=== PATIENT | male | born 1940 | race Caucasian/White ===

== ENCOUNTER 2016-09-21 09:40 | Outpatient (CLI) | payer MEDICARE, OTHER ==
[2016-04-06 15:45] VITALS: BP 128/72
[2016-09-21 10:02] LABS: BASOPHILS % 0.9 (0.0-1.5); EOSINOPHILS % 4.2 % (0.0-6.8); MEAN CORPUSCULAR HEMOGLOBIN 30.4 pg (28.0-34.0); MONOCYTES % 6.5 % (0.0-11.0)
[2016-09-21 10:31] LABS: eGFR (African) > 60; eGFR (Non-African) > 60
== END 2016-09-21 09:42 ==
LOC: LAB 09:40
PROVIDERS: ATTEND Internal Medicine
DX: Z00.00 Encounter for general adult medical examination without abnormal findings (principal); I10 Essential (primary) hypertension; G63 Polyneuropathy in diseases classified elsewhere; E55.9 Vitamin D deficiency, unspecified
CPT/HCPCS: 36415; 80053; 80061; 82306; 84443; 85025

== ENCOUNTER → 2016-11-25 | Outpatient (CLI) | payer MEDICARE, OTHER ==
[2016-04-06 15:45] VITALS: BP 128/72
[2016-11-25 11:23] LABS: BILIRUBIN,DIRECT 0.2 mg/dL (0.0-0.4)
== END ==
LOC: LAB 10:42
PROVIDERS: ATTEND Dermatology
DX: Z79.899 Other long term (current) drug therapy (principal)
CPT/HCPCS: 36415; 80076

== ENCOUNTER 2017-03-31 10:40 | Outpatient (CLI) | payer MEDICARE, OTHER ==
[2016-04-06 15:45] VITALS: BP 128/72
== END 2017-03-31 10:42 ==
LOC: LAB 10:40
PROVIDERS: ATTEND Internal Medicine
DX: E66.3 Overweight (principal); M19.90 Unspecified osteoarthritis, unspecified site; I10 Essential (primary) hypertension; E55.9 Vitamin D deficiency, unspecified
CPT/HCPCS: 36415; 83036

== ENCOUNTER 2017-08-18 09:15 | Outpatient (CLI) | payer MEDICARE, OTHER ==
[2016-04-06 15:45] VITALS: BP 128/72
[2017-08-18 10:00] LABS: BASOPHILS % 0.7 (0.0-1.5); EOSINOPHILS % 5.1 % (0.0-6.8); MEAN CORPUSCULAR HEMOGLOBIN 30.9 pg (28.0-34.0); MEAN CORPUSCULAR VOLUME 93.6 fl (80.0-100.0); MONOCYTES % 6.1 % (0.0-11.0); NEUTROPHILS # 4.2 # k/uL (1.4-7.7)
[2017-08-18 10:49] LABS: eGFR (African) > 60; eGFR (Non-African) > 60
== END 2017-08-18 09:16 ==
LOC: LAB 09:15
PROVIDERS: ATTEND Family Medicine
DX: E66.3 Overweight (principal)
CPT/HCPCS: 36415; 80053; 80061; 83036; 85025; 86141

== ENCOUNTER 2017-12-23 10:57 | Emergency (ER) | payer MEDICARE, OTHER ==
--- NOTE | 2017-12-23 11:19 | ED Physician Documentation ---
General Adult - HISTORIAN Historian: patient, paramedics, other (old records. pt is no informative) - HPI Stated Complaint: "general weakness" Chief Complaint: General Adult Additional Information: 3-4 days of feeling weak and not eating much. Says he has been drinking liquids. Has urinated twice since 0900 today. Per EMS, pt's house was very warm and he felt warm to touch on their arrival. HX AAA repair with stents, AMI, COPD , BPH. No oxygen use at home. Tachycardia in 120's and pulse ox 92% on RA on arrival. Timing: still present - ROS CONST: no problems - PAST HX Past History: AMI, COPD, other (AAA, BPH) Other History: other (HLD) Surgeries/Procedures: other (above) Allergies/Adverse Reactions: Allergies Allergy/AdvReac Type Severity Reaction Status Date / Time clopidogrel bisulfate Allergy Intermediate Rash Verified 12/23/17 11:48 [From Plavix] Home Medications: Ambulatory Orders Medication Instructions Recorded Benazepril HCl [Benazepril HCl] 20 mg PO DIRECTED 12/21/13 Metoprolol Succinate [Metoprolol 50 mg PO DAILY 12/21/13 Succinate] Simvastatin [Simvastatin] 40 mg PO DAILY 12/21/13 Tamsulosin HCl [Tamsulosin HCl] 0.4 mg PO DIRECTED 12/21/13 Finasteride 5 mg PO DAILY u2 08/30/17 - SOCIAL HX Smoking History: quit greater than 1 year, cigarettes Alcohol Use: other ("gave it up years ago") - FAMILY HX Family History: Yes (F with heart problem M with strokes) - VITAL SIGNS Vital Signs: Vital Signs Temp Pulse Resp BP Pulse Ox 128/72 04/06/16 15:41 - REVIEWED ASSESSMENTS Nursing Assessment Reviewed: Yes Vitals Reviewed: Yes Progress - Progress Progress: EKG with sinus tach, 123 BPM, occ PVC's, No acute ischemic changes. Report Submission Date: Dec 23, 2017 11:57:24 AM CDT Patient Study Name: RUPA STANFORD Date: Dec 23, 2017 11:25:09 AM CDT Modality Type: DX Gender: M Description: CHEST : 36 Institution: [facility] Physician: JODIE ROSAS - ER Portable chest Clinical history: Weakness. Shortness of breath. Findings: Examination of the chest and single portable AP view demonstrates the lungs to be hypoventilated but clear. The cardiac silhouette is prominent and the aorta is atherosclerotic. Bony thorax is intact. Impression: 1. Hypoventilation. 2. Aortic atherosclerosis and left ventricular prominence. Electronically signed on Dec 23, 2017 11:57:24 AM CDT by: Shaq Erwin [id number] after 2L NS. Wants to know when he can go home. Has been drinking water, eating crackers. Orthostatics fine. Ambulatory w/o difficulty. ED Results Lab/Radiology - Orders Orders: ED Orders Category Date Time Status Continuous EKG monitoring Q1H Care 12/23/17 11:08 Active Remove IV/Saline Lock 1T Care 12/23/17 11:08 Active CHEST 1VIEW [RAD] Stat Exams 12/23/17 Ordered BLOOD CULTURE Stat Lab 12/23/17 Ordered CBC/PLATELET/DIFF Routine Lab 12/23/17 Ordered CMP Routine Lab 12/23/17 Ordered PT-INR Routine Lab 12/23/17 Ordered TROPONIN I (cTnI) Stat Lab 12/23/17 Ordered URINALYSIS Routine Lab 12/23/17 Ordered EKG WITH COMPARISON Stat Ther 12/23/17 Ordered General Adult Physical Exam - PHYSICAL EXAM GENERAL APPEARANCE: moderate distress EENT: eye inspection normal, ENT inspection normal, pharynx normal, dry mucous membranes NECK: normal inspection. No: lymphadenopathy RESPIRATORY: no resp distress, breath sounds normal (but decreased throughout) CVS: heart sounds normal, tachycardia ABDOMEN: soft, normal bowel sounds, no abdominal bruit, no distension, non- tender BACK: normal inspection, other (no vertebral tenderness. Requires assist to sit) SKIN: warm/dry, normal color EXTREMITIES: non-tender, no evidence of injury, no edema, other (DP's 1+) NEURO: CN's nml as tested, motor nml, sensation nml Discharge Clincal Impression: Dehydration Referrals: Rafael Stark MD [Primary Care Provider] - 2 Days Additional Instructions: Drink more water! Your labs and EKG and x ray were reassuring. Condition: Good Disposition: 01 HOME, SELF-CARE Decision to Admit: NO Decision Time: 14:05
[2017-12-23 11:43] LABS: BASOPHILS % 0.3 (0.0-1.5); EOSINOPHILS % 0.2 % (0.0-6.8); MEAN CORPUSCULAR HEMOGLOBIN 31.2 pg (28.0-34.0); MEAN CORPUSCULAR VOLUME 93.3 fl (80.0-100.0); MONOCYTES % 4.2 % (0.0-11.0); NEUTROPHILS # 9.8 # k/uL (1.4-7.7)
[2017-12-23 11:54] LABS: eGFR (African) > 60; eGFR (Non-African) > 60
[2017-12-23] MEDS: 0.9 % SODIUM CHLORIDE 1,000 ML IV ONE (12:30)
[2017-12-23 14:37] VITALS: BP 116/83
--- NOTE | 2017-12-23 16:07 | Diagnostic Imaging Report ---
JODIE ROSAS [facility] [id number] [facility] [address] [address] Report Submission Date: Dec 23, 2017 11:57:24 AM CDT Patient Study Name: RUPA STANFORD Date: Dec 23, 2017 11:25:09 AM CDT Modality Type: DX Gender: M Description: CHEST : 36 Institution: [facility] Physician: JODIE ROSAS Portable chest Clinical history: Weakness. Shortness of breath. Findings: Examination of the chest and single portable AP view demonstrates the lungs to be hypoventilated but clear. The cardiac silhouette is prominent and the aorta is atherosclerotic. Bony thorax is intact. Impression: 1. Hypoventilation. 2. Aortic atherosclerosis and left ventricular prominence. Electronically signed on Dec 23, 2017 11:57:24 AM CDT by: Shaq MCCLELLAN
[2017-12-24 07:39] LABS: APPEARANCE,URINE CLEAR (CLEAR); COLOR,URINE YELLOW (YELLOW); OCCULT BLOOD,URINE 2+ (NEGATIVE); PH URINE 6.5 (5.0 - 8.0); UROBILINOGEN URINE 0.2 Eu (0.2-1.0)
== END 2017-12-23 14:20 | disposition home or self-care (01) ==
LOC: ED 10:57
DX: E86.0 Dehydration (principal)
CPT/HCPCS: 71045; 80053; 81002; 84484; 85025; 85610; 87040; 93005; J7030; 96360; 99284; S1016

== ENCOUNTER 2018-02-28 12:21 | Outpatient (CLI) | payer MEDICARE, OTHER ==
[2018-02-28 13:57] LABS: eGFR (Non-African) > 60
== END 2018-02-28 12:23 ==
LOC: LAB 12:21
PROVIDERS: ATTEND Family Medicine
DX: Z00.00 Encounter for general adult medical examination without abnormal findings (principal); E78.5 Hyperlipidemia, unspecified
CPT/HCPCS: 36415; 80053; 80061

== ENCOUNTER 2018-06-12 11:03 | Emergency (ER) | payer MEDICARE, OTHER ==
[2018-06-12 11:21] VITALS: BP 104/64
--- NOTE | 2018-06-12 11:22 | ED Physician Documentation ---
Upper Extremity Injury - HISTORIAN Historian: patient - HPI Stated Complaint: left wrist pain Chief Complaint: Upper Extremity Problem Additional Information: Patient presents to ED with a 1 month history of left wrist pain after opening his refrigerator. He states he has been wearing a brace to help manage the pain. He has not taken any tylenol or ibuprofen. He has a friend who is a retired RN who sent him to the ER, stating "may have a hair line fracture". Onset: other (1 month ago) Where: home Severity: mild Duration: persistent since Context: other (opening refrigerator door) Associated Symptoms: denies: tingling, loss of power to arms Modifying Factors: pain on movement Further Comments: no - ROS CONST: no problems CVS/RESP: none NEURO: none MS/SKIN/LYMPH: none GI/: denies: nausea, vomiting - PAST HX Past History: Rt handed Allergies/Adverse Reactions: Allergies Allergy/AdvReac Type Severity Reaction Status Date / Time clopidogrel bisulfate Allergy Intermediate Rash Verified 06/12/18 11:20 [From Plavix] Home Medications: Ambulatory Orders Medication Instructions Recorded Benazepril HCl 20 mg PO DIRECTED 12/21/13 Metoprolol Succinate 50 mg PO DAILY 12/21/13 Tamsulosin HCl 0.4 mg PO DIRECTED 12/21/13 Finasteride 5 mg PO DAILY u2 08/30/17 - SOCIAL HX Smoking History: non-smoker Alcohol Use: none Drug Use: none - FAMILY HX Family History: none - VITAL SIGNS Vital Signs: Vital Signs Temp Pulse Resp BP Pulse Ox 55 L 16 104/64 94 06/12/18 13:10 06/12/18 13:10 06/12/18 13:10 06/12/18 13:10 - REVIEWED ASSESSMENTS Nursing Assessment Reviewed: Yes Vitals Reviewed: Yes ED Results Lab/Radiology - Radiology Radiology Impressions: Examination: Plain film left wrist History: PAIN AND STIFFNESS IN LEFT WRIST X 1 MONTH Comparison exams: None available Findings: 3 views of the left wrist demonstrates osteopenia. Articular degenerative changes. No fracture. No dislocation. No soft tissue abnormality. Impression: Osteopenia and degenerative spurring. No acute appearing osseous abnormality Electronically signed on Jun 12, 2018 12:26:00 PM INTERACTIVE DIGITAL MEDIA SPECIALIST by: Emigdio Panchal - Orders Orders: ED Orders Category Date Time Status WRIST 3 VIEWS OR MORE [RAD] Stat Exams 06/12/18 Completed Upper Extremity Injury Physic - Physical Exam General Appearance: no acute distress, alert Wrist: limited ROM, soft tissue tenderness. No: swelling Shoulder: normal inspection, non-tender, no evidence of injury Neuro/Vascular/Tendon: no vascular compromise, motor nml, sensation nml Skin: warm,dry Head/ENT: nml inspection Neck/Back: nml inspection Resp/CVS: chest non-tender, breath sounds nml, heart sounds nml Abdomen: non-tender Discharge Clincal Impression: Wrist pain, left Referrals: Rafael Stark MD [Primary Care Provider] - 2 Days Additional Instructions: 1. Follow up with Dr. Stark within 1 week. 2. Take Aleve as needed for pain 3. Wear wrist brace as needed for comfort 4. Take daily Calcium supplement 5. Return to ED for new or worsening symptoms. Condition: Stable Disposition: 01 HOME, SELF-CARE Decision to Admit: NO Date of Decison to Admit: 06/12/18 Decision Time: 13:06
--- NOTE | 2018-06-12 12:26 | Diagnostic Imaging Report ---
CED MASCORRO [facility] [address] [facility] [address] [address] Report Submission Date: Jun 12, 2018 12:26:00 PM [employer] EXEC[employer]IVE Patient Study Name: RUPA STANFORD Date: Jun 12, 2018 11:24:22 AM [employer] EXEC[employer]IVE Modality Type: DX Gender: M Description: UPPER EXTREMITY : 36 Institution: [facility] Physician: CED MASCORRO Examination: Plain film left wrist History: PAIN AND STIFFNESS IN LEFT WRIST X 1 MONTH Comparison exams: None available Findings: 3 views of the left wrist demonstrates osteopenia. Articular degenerative changes. No fracture. No dislocation. No soft tissue abnormality. Impression: Osteopenia and degenerative spurring. No acute appearing osseous abnormality Electronically signed on Jun 12, 2018 12:26:00 PM GLO[employer] SALES EXECUTIVE by: Emigdio MCCLELLAN
== END 2018-06-12 13:10 | disposition home or self-care (01) ==
LOC: ED 11:03
DX: M25.532 Pain in left wrist (principal)
CPT/HCPCS: 73110; 99282; 99283

== ENCOUNTER 2019-05-20 10:48 | Emergency (ER) | payer MEDICARE, OTHER ==
[2019-05-20] MEDS ORDERED: 0.9 % SODIUM CHLORIDE 1,000 ML IV ONE ×2 (11:00→11:23)
--- NOTE | 2019-05-20 11:00 | ED Physician Documentation ---
General Adult - HISTORIAN Historian: patient - HPI Stated Complaint: diarrhea, weakness Chief Complaint: General Adult Onset: days ago (4) Timing: still present Severity: moderate Further Comments: yes (Pt is an 79 yo male with diarrhea x 4 days. Pt has been getting very weak. Numerous bm's with diarrhea. No blood seen with bm's.) - ROS CONST: weakness EYES/ENT: none CVS/RESP: none GI/: diarrhea MS/SKIN/LYMPH: none - PAST HX Past History: other (CAD, [place] w stents, HLD, HTN, BPH, AAA repair) Allergies/Adverse Reactions: Allergies Allergy/AdvReac Type Severity Reaction Status Date / Time clopidogrel bisulfate Allergy Intermediate Rash Verified 05/20/19 11:41 [From Plavix] Home Medications: Ambulatory Orders Medication Instructions Recorded Metoprolol Succinate 50 mg PO DAILY 12/21/13 Tamsulosin HCl 0.4 mg PO DIRECTED 12/21/13 Finasteride 5 mg PO DAILY u2 08/30/17 Ciprofloxacin HCl [Cipro] 250 mg PO Q12H #10 tablet 05/20/19 - SOCIAL HX Smoking History: other (unk) - FAMILY HX Family History: No - VITAL SIGNS Vital Signs: Vital Signs Temp Pulse Resp BP Pulse Ox 104/64 06/12/18 13:10 - REVIEWED ASSESSMENTS Nursing Assessment Reviewed: Yes Vitals Reviewed: Yes Progress - Progress Progress: NS 1.5 L IVF improved Rx Ciprofloxacin 250 mg. Take one every 12 hours for 5 days. General Adult Physical Exam - PHYSICAL EXAM GENERAL APPEARANCE: moderate distress EENT: dry mucous membranes NECK: normal inspection, supple RESPIRATORY: no resp distress, chest non-tender, breath sounds normal CVS: reg rate & rhythm, heart sounds normal ABDOMEN: soft, no organomegaly, normal bowel sounds SKIN: warm/dry, normal color EXTREMITIES: non-tender, normal range of motion, no evidence of injury, no edema NEURO: oriented X3, motor nml, sensation nml Discharge Clincal Impression: diarrhea, Dehydration Prescriptions: Ciprofloxacin HCl [Cipro] 250 mg PO Q12H #10 tablet Referrals: Rafael Stark MD [Primary Care Provider] - Condition: Stable Disposition: 01 HOME, SELF-CARE Decision to Admit: NO Decision Time: 13:17
[2019-05-20 11:30] LABS: eGFR (Non-African) 54
[2019-05-20 11:34] LABS: BASOPHILS % 1.7 % (0.0-1.5); NEUTROPHILS # 5.1 # k/uL (1.4-7.7)
[2019-05-20] MEDS ORDERED: 0.9 % SODIUM CHLORIDE 500 ML IV ONE (12:20)
[2019-05-20 13:11] VITALS: BP 128/62
== END 2019-05-20 13:00 | disposition home or self-care (01) ==
LOC: ED 10:48
DX: E86.0 Dehydration (principal); R19.7 Diarrhea, unspecified
CPT/HCPCS: 80053; 82550; 83880; 84484; 85025; 93005; 96360; 96361; 99284; J7030; J7060; S1016